=== PATIENT | female | born 1990 | race Caucasian/White ===

== ENCOUNTER 2020-06-14 16:57 | Emergency (ER) | payer OTHER ==
[~2020-06-14] VITALS: Ht 157.5 cm; Wt 65.8 kg
--- NOTE | 2020-06-14 17:10 | NUR ---
PT BIB [facility] S/P HEROIN USE. PER [facility], FOUND BY PD LYING DOWN IN E[employer]AM[employer]. A/OX4. AMBULATORY ON SCENE PER EMS. NAD NOTED. DENIES SI/HI. REPORTS FEELING "COLD" BUT OTHERWISE NO COMPLAINTS. IN ER BED 14.
--- NOTE | 2020-06-14 17:55 | NUR ---
PT ASLEEP IN BED, EASILY AROUSABLE HOWEVER PT REQUESTS TO BE ALLOWED TO SLEEP FOR A LITTLE BIT LONGER.
[2020-06-14 19:00] VITALS: BP 126/65
--- NOTE | 2020-06-14 19:35 | NUR ---
Patient discharged in stable condition. Written and verbal after care instructions given. Patient verbalizes understanding of instruction. PT SIGNED [facility], REFUSES ALL RESOURCES, REFUSES DC VS. NAD NOTED.
== END 2020-06-14 19:38 | disposition home or self-care (01) ==
LOC: ER 17:04
DX: F11.10 Opioid abuse, uncomplicated (principal); F17.200 Nicotine dependence, unspecified, uncomplicated; Z59.0 Homelessness